=== PATIENT | male | born 1990 | race Caucasian/White ===

== ENCOUNTER 2022-10-26 16:40 | Emergency (ER) | payer OTHER, SELFPAY ==
[2022-10-26 16:43] VITALS: BP 145/106; PULSE 100; TEMP 36.9; O2SAT 99
[2022-10-26 16:57] VITALS: BP 145/106; PULSE 100; RESP 17; TEMP 36.9; O2SAT 99
--- NOTE | 2022-10-26 17:02 | ED.GENADULT ---
HPI - General Adult General Chief complaint: Wound/Laceration Stated complaint: rash on butt cheek Time Seen by Provider: 10/26/22 16:58 History of Present Illness HPI narrative: Healthy 32yo man presents with pain and swelling to his left butt cheek for the past 3 days. No fevers or chills. Thinks a spider may have bit him. No pain with defecation. Related Data Allergies Allergy/AdvReac Type Severity Reaction Status Date / Time No Known Allergies Allergy Verified 10/26/22 16:56 Review of Systems Review of Systems: All systems reviewed & are unremarkable except as noted in HPI and below Constitutional: Constitutional: Denies chills and Denies fever(s) ENT: Denies dysphagia Cardiovascular: Cardiovascular: Denies chest pain Respiratory: Respiratory: Denies dyspnea Exam Const: General: healthy appearing and no acute distress Nutritional Appearance: well nourished Eyes: Conjunctivae: conjunctivae normal Neck: Neck: no meningeal signs Resp: Effort & Inspection: normal respiratory effort Cardio: Rate: regular rate GI: Inspection: non-distended Skin: General skin exam: normal color, no jaundice and no pallor Other: redness, warmth to left medial butt cheek. No mass or fluctuance. Course Vital Signs Vital signs: Vital Signs Temperature 36.9 C 10/26/22 16:43 Pulse Rate 100 10/26/22 16:43 Blood Pressure 145/106 H 10/26/22 16:43 Pulse Oximetry 99 10/26/22 16:43 Oxygen Delivery Room Air 10/26/22 16:43 Temperature 36.9 C 10/26/22 16:57 Pulse Rate 100 10/26/22 16:57 Respiratory Rate 17 10/26/22 16:57 Blood Pressure 145/106 H 10/26/22 16:57 Pulse Oximetry 99 10/26/22 16:57 Oxygen Delivery Room Air 10/26/22 16:57 Medical Decision Making [facility] Narrative Medical decision making narrative: skin pain and swelling DDx favor cellulitis, or brown recluse envenomation, clinically not compatible with abscess and not enough time in history since onset to form abscess. Start abx, coverage for GP, GN, and anaerobes given location. Vital Signs Vital Signs: Vital Signs Temperature 36.9 C 10/26/22 16:43 Pulse Rate 100 10/26/22 16:43 Blood Pressure 145/106 H 10/26/22 16:43 Pulse Oximetry 99 10/26/22 16:43 Oxygen Delivery Room Air 10/26/22 16:43 Temperature 36.9 C 10/26/22 16:57 Pulse Rate 100 10/26/22 16:57 Respiratory Rate 17 10/26/22 16:57 Blood Pressure 145/106 H 10/26/22 16:57 Pulse Oximetry 99 10/26/22 16:57 Oxygen Delivery Room Air 10/26/22 16:57 Discharge Plan Discharge Clinical Impression: Cellulitis of buttock, left Patient Disposition: Home, Self-Care Condition: Stable Instructions: Antibiotic Form Additional Instructions: Take both antibiotics for the full duration to clear the infection. Do hot water soaks of the infected area in the bath tub 3-4 times per day to help clear the infection and reduce your risk of needing an incision and drainage procedure performed. For pain, take Ibuprofen 800 mg and Acetaminophen 1000 mg every 6 hours as needed. If symptoms do not improve by Sunday, or worsen, follow-up with any of the listed surgeons for re-evaluation and possible drainage at that time. Prescriptions: New sulfamethoxazole-trimethoprim [Bactrim DS] 800-160 mg tablet 2 tablet PO BID 7 Days Qty: 28 0RF ciprofloxacin HCl 500 mg tablet 500 mg PO BID Qty: 14 0RF Follow-up/Referrals: UNKNOWN,DOCTOR [Primary Care Provider] - Time of Disposition: 17:12
[2022-10-26] MEDS: KETOROLAC (*BKC) 60 MG/2 ML VIAL IM (17:16)
[2022-10-26] MEDS: SULFAMETHOXAZOLE/TRIMETHOPRIM 800/160 MG DS TABLET 2 TAB PO (17:16)
[2022-10-26] MEDS: CIPROFLOXACIN 500 MG TAB PO (17:16)
[2022-10-26 17:39] VITALS: BP 132/99; PULSE 85; RESP 17; TEMP 36.9; O2SAT 100
== END 2022-10-26 17:39 | disposition home or self-care (01) ==
LOC: CHSED 17:15
PROVIDERS: Emergency Provider Emergency Medicine
DX: L03.317 Cellulitis of buttock (principal)
CPT/HCPCS: 96372; 99284; A9270; J1100; J1885

== ENCOUNTER 2024-07-27 09:50 | Emergency (ER) | payer OTHER, SELFPAY ==
[2024-07-27 09:52] VITALS: BP 130/93; PULSE 66; RESP 16; TEMP 36.9; O2SAT 100
--- NOTE | 2024-07-27 09:52 | ED_ITS ---
HPI - Eye Problem General Chief complaint: Eye Problems Stated complaint: rt. eye irritation Time Seen by Provider: 07/27/24 09:52 Source: patient Mode of arrival: ambulatory Limitations: no limitations History of Present Illness HPI Narrative: Patient is a 34-year-old male with a right eye irritation and pain. He is having a foreign body sensation. He uses metal for work and also was using a metal bristle the other day and felt something get into the eye. Also he got grease in his right eye as well the next day. Altogether he has been having 4 days of irritation of foreign body sensation. The conjunctiva has been red. tetanus unknown last and not up-to-date. MD chief complaint: eye pain, eye redness and foreign body Onset (ago): day(s) ( Four) Onset description: sudden Duration: constant Location: right eye Eye Symptoms: burning, redness, pain, foreign body sensation and discharge Place: home and work Mechanism: direct trauma Severity: moderate Severity scale (1-10): 4 If Pain, Quality: sharp and burning Context: trauma ( metal into the right eye) Associated symptoms: none Treatments Prior to Arrival: irrigated eye Related Data Allergies Allergy/AdvReac Type Severity Reaction Status Date / Time No Known Allergies Allergy Verified 07/27/24 10:26 Review of Systems Review of Systems: All systems reviewed & are unremarkable except as noted in HPI and below Constitutional: Constitutional: Reports no additional constitutional complaints Eyes: Eyes: Reports no additional eye complaints ENT: Reports system reviewed and no additional complaints, except as documented Cardiovascular: Cardiovascular: Reports no additional cardiovascular complaints Respiratory: Respiratory: Reports no additional respiratory complaints Gastrointestinal: Gastrointestinal: Reports no additional gastrointestinal complaints Genitourinary: Genitourinary: Reports no additional male genitourinary complaints Musculoskeletal: Musculoskeletal: Reports no additional musculoskeletal complaints Integumentary/Breasts: Skin/Breast: Reports system reviewed and no additional complaints, except as docu Neurologic: Reports system reviewed and no additional complaints, except as documented Psychiatric: Psychiatric: Reports no additional psychiatric complaints Endocrine: Endocrine: Reports no additional endocrine complaints Hematologic/Lymphatic: Hematologic/Lymphatic: Reports no additional hematologic/lymphatic complaints Allergic/Immunologic: Allergic/Immunologic: Reports no additional allergic/immunologic complaints Exam Const: General: healthy appearing Nutritional Appearance: well nourished Orientation/consciousness: patient oriented x3 HENMT: Head: normal to inspection Ears: external ears normal Face/Nose/Sinus: Normal external nose present Eyes: Conjunctivae: conjunctival abnormality ( Right eye is red and irritated of the conjunctiva) Pupils: Equal, round and reactive pupils present EOM: EOMs intact bilaterally Direct Ophthalmoscopy: photophobia Other: right eye has a 9 o'clock position to 10 o'clock position foreign body that appears to be a piece of metal in the cornea Neck: Neck: normal visual inspection Chest: Chest palpation & inspection: normal inspection of the chest Resp: Effort & Inspection: normal respiratory effort and not labored Auscultation: clear to auscultation bilaterally and no crackles Cardio: Rate: regular rate Rhythm: regular rhythm Heart sounds: no murmurs GI: Inspection: non-distended GI Palp: Yes Soft to palpation and No Tenderness to palpation present (GI) Auscultation: normal bowel sounds : General: Yes bladder normal to palpation Back/Spine/Pelvis: Back: no CVA tenderness Skin: General skin exam: normal color Rashes: no rashes Wounds: no wounds Neuro: General: patient oriented x3 Cranial nerves: Yes Nystagmus not present Speech: normal speech Extrem: General: normal to inspection Psych: Mental Status: mental status grossly normal Affect: normal affect Attitude: cooperative Course Vital Signs Vital signs: Vital Signs Temperature 36.9 C 07/27/24 09:52 Pulse Rate 66 07/27/24 09:52 Respiratory Rate 16 07/27/24 09:52 Blood Pressure 130/93 H 07/27/24 09:52 Pulse Oximetry 100 07/27/24 09:52 Oxygen Delivery Room Air 07/27/24 09:52 Temperature 36.9 C 07/27/24 09:52 Pulse Rate 66 07/27/24 09:52 Respiratory Rate 16 07/27/24 09:52 Blood Pressure 130/93 H 07/27/24 09:52 Pulse Oximetry 100 07/27/24 09:52 Oxygen Delivery Room Air 07/27/24 09:52 Procedures Other Procedure Procedure 1: Other Procedure: Right eye foreign body removal: Tetracaine used for anesthesia, Q-tip used to remove foreign body / 20 gauge needle used to remove foreign body, Maxitrol prescription, patient tolerated procedure well, no complications MDM - Eye Problem MDM Narrative Medical decision making narrative: patient is a 34-year-old male with right eye irritation and pain for the past 4 days. We will use magnification to look for any further foreign bodies. He will need Maxitrol. He will need a tetanus shot. Discharge Plan Discharge Clinical Impression: Bacterial conjunctivitis Corneal abrasion Qualifiers: Encounter type: initial encounter Laterality: right Qualified Code(s): S05.01XA - Injury of conjunctiva and corneal abrasion without foreign body, right eye, initial encounter Eye foreign body Qualifiers: Encounter type: initial encounter Laterality: right Qualified Code(s): T15.91XA - Foreign body on external eye, part unspecified, right eye, initial encounter Patient Disposition: Home Condition: Stable Instructions: Antibiotic Form, Corneal Abrasion (ED), Eye Foreign Body (ED), Conjunctivitis (ED) Patient Language: Latvian Prescriptions: New neomycin-polymyxin B-dexameth [Maxitrol] 3.5mg/mL-10,000 unit/mL-0.1 % drops,suspension 2 drp RIGHT EYE TID 7 Days Qty: 5 0RF No Action sulfamethoxazole-trimethoprim [Bactrim DS] 800-160 mg tablet 2 tablet PO BID 7 Days Qty: 28 0RF ciprofloxacin HCl 500 mg tablet 500 mg PO BID Qty: 14 0RF Follow-up/Referrals: UNKNOWN,DOCTOR [Primary Care Provider] -
--- OUTSIDE RECORDS SUMMARY | 2024-07-27 09:52 | XMS_ITS | Clinical Summary ---
Author Organization [facility] Address [address] [place] [address] Phone Care Team Providers Care Calender Roll Operator Name Role Phone Provider, None Primary Care Provider Unavailabl e Allergies No known active allergies Immunizations Immunization Administration Dates Next Due TDAP Vaccine 12/01/2017 Social History Tobacco Use Types Packs/Day Years Used Date Smoking Tobacco: Former Cigarettes Smokeless Tobacco: Never Tobacco Cessation:Counseling Given: No Alcohol Use Standard Drinks/Week Comments Yes 0 (1 standard drink = 0.6 oz pur e alcohol) Socially Sex and Gender Information Value Date Recorded Sex Assigned at Not on file Legal Sex Male 11:48 PM CDT Gender Identity Not on file Sexual Orientation Not on file Last Filed Vital Signs Vital Sign Reading Time Taken Comments Blood Pressure 125/68 12/01/2017 5:59 PM CDT Pulse 137 12/01/2017 5:59 PM CDT Temperature 37.3 C (99.1 F) 12/01/2017 5:59 PM CDT Respiratory Rate 18 12/01/2017 5:59 PM CDT Oxygen Saturation 92% 12/01/2017 5:59 PM CDT Inhaled Oxygen Concentration - - Weight 86.2 kg (190 lb) 12/01/2017 5:59 PM CDT Height 180.3 cm (5' 11 ) 12/01/2017 5:59 PM CDT Body Mass Index 26.5 12/01/2017 5:59 PM CDT Plan of Treatment Health Maintenance Due Date Last Done Comments Hepatitis C Virus (HCV) Screening 1988 Hepatitis B Immunization (1 of 3 - 19+ 3-dose series) 07/07/2007 Influenza Immunization (#1) 2023 SARS-COV-2 Immunization ( season) 2023 Respiratory Syncytial Virus (RSV) Immunization (Adult) (1 - 1-dose 75+ series) 07/07/2063 DTaP/Tdap/Td Immunization Discontinued 12/01/2017 Meningococcal Immunization (ACWY) Aged Out No longer eligible based on patient's age to complete this topic Pneumococcal Immunization Combined Aged Out No longer eligible b ased on patient's age to complete this topic Rotavirus Immunization Aged Out No lo nger eligible based on patient's age to complete this topic Care Teams Calender Roll Operator Relationship Specialty Start Date End Date Provider, None [place] PCP - General 12/01/17
[2024-07-27] MEDS: TETANUS,DIPHTHERIA,AC PERTUSSIS ADULT 0.5 ML (ADACEL) IM (10:16)
--- OUTSIDE RECORDS SUMMARY | 2024-07-27 10:47 | XMS_ITS | Clinical Summary ---
Author Organization [facility] Address [address] [place] [address] Phone Care Team Providers Care Eeg Technician Name Role Phone Provider, None Primary Care [...] age to complete this topic Care Teams Eeg Technician Relationship Specialty Start Date End Date Provider, None [place] PCP - General 12/01/17
== END 2024-07-27 10:40 | disposition home or self-care (01) ==
LOC: CHSED 10:46
PROVIDERS: Emergency Provider Emergency Medicine; PCP Internal Medicine
DX: T15.11XA Foreign body in conjunctival sac, right eye, initial encounter (principal); H10.9 Unspecified conjunctivitis; Z23 Encounter for immunization; W44.E0XA Non-magnetic metal object unspecified, entering into or through a natural orifice, initial encounter
CPT/HCPCS: 65205; 90471; 90715; 99283